=== PATIENT | male | born 2000 | race Caucasian/White ===

== ENCOUNTER → 2023-08-17 12:52 | Outpatient (CLI) | payer OTHER, SELFPAY ==
--- NOTE | ~2023-08-17 | CT_ITS ---
. EXAMINATION: CT abdomen pelvis wo con DATE: 08/17/2023 13:10 INDICATION: Renal colic TECHNIQUE: Computed tomography (CT) of the abdomen and pelvis was performed without intravenous contr ast. Automated exposure control and iterative reconstruction technique were employed. Exam dose: 402 .70 mGy-cm total exam DLP. COMPARISON: None. FINDINGS: The lung bases are clear. Normal heart size. No pericardial or pleural effusion. The liver, gallbladder, bile ducts, spleen, pancreas, pancreatic duct, and adrenal glands and kidneys are unremarkable except for probable approximately 12 mm right renal cyst, not optimally evaluated o n this limited noncontrast examination. No urinary tract calculus or hydroureteronephrosis. The urinary bladder, prostate gland and seminal v esicles are unremarkable. Normal caliber of the abdominal aorta. No intraperitoneal or retroperitoneal or pelvic mass lesion or adenopathy or ascites. No evidence of appendicitis. No bowel obstruction, bowel wall thickening, pneumatosis or intraperiton eal free air. Very small fat-containing umbilical hernia. Included skeletal structures are unremarkable. IMPRESSION: No urinary tract calculus or hydroureteronephrosis Probable left 12 mm renal cyst Reviewed, dictated and finalized at [facility]. Reviewed, dictated and finalized at [facility]
== END ==
PROVIDERS: PCP Urology; Visit Provider Urology
DX: N23 Unspecified renal colic (principal)
CPT/HCPCS: 74176